=== PATIENT | female | born 1955 | race Caucasian/White ===

== ENCOUNTER → 2018-07-23 | Outpatient (CLI) | payer OTHER | LOC: RAD 09:21 | DX: Z12.31 Encounter for screening mammogram for malignant neoplasm of breast (principal) ==

== ENCOUNTER 2019-03-28 05:58 | Observation (INO) | payer OTHER ==
--- NOTE | 2019-03-21 09:30 | EKG ---
[address] [address] ELECTROCARDIOGRAM REPORT Name: AFIA SAXENA ANGELA Room #: PRE [facility]..#: [id number] ������������������ Admission: ������������������ Attend Phys: Pancho Carcamo MD Discharge: ������������������ Date of : 57 Report #: [id number] ����������������������������������������������������������������� [id number] THIS REPORT FOR: //name// [facility] Test Date: 2019-03-20 Test Time: 08:47:45 Pat Name: AFIA SAXENA Department: Room: Gender: F Stranner: DARIO MORRIS : 1955 Requested By: Pancho Carcamo Order Number: [id number] MD: Keanu Mae Measurements Intervals [place] Rate: 62 P: 65 CA: 166 QRS: 52 QRSD: 96 T: 39 QT: 394 QTc: 400 Interpretive Statements Sinus rhythm Normal tracing Compared to ECG 04/04/2002 22:57:25 No significant change was found Electronically Signed On 03-21-2019 9:30:51 CDT by Keanu Mae [email or web address] ��������������������������������������������� <ELECTRONICALLY SIGNED> ���������������������������������������� By: Keanu Mae MD, [facility] ��������������������������������������������� 03/21/19 0930 0847 6 Keanu Mae MD, FACC /EPI
[~2019-03-28] VITALS: Ht 160 cm; Wt 64.4 kg
[2019-03-28] VITALS (9 sets, daily range): BP systolic 113–143; BP diastolic 38–88
--- NOTE | ~2019-03-28 | O ---
[facility] [place] [address] OPERATIVE REPORT Name: AFIA SAXENA Room #: 150-3 [facility] M.R.#: [id number] Admission: 03/28/19 ������������������ Attend Phys: Pancho Carcamo MD Discharge: ������������������ Date of : 57 Report #: [id number] THIS REPORT FOR: //name// CC: Deny Carcamo DATE OF SERVICE: 03/28/2019 PREOPERATIVE DIAGNOSIS: Right knee medial compartment osteoarthritis. POSTOPERATIVE DIAGNOSIS: Right knee medial compartment osteoarthritis. PROCEDURE: Right medial compartment knee arthroplasty using Navio robotic assistance. SURGEON: Pancho Carcamo MD. AUTOMATIC MACHINE ATTENDANT: Romy Clifford PA-C. INDICATIONS FOR AUTOMATIC MACHINE ATTENDANT: Throughout the case, extensive retraction and manipulation of the knee was required. This was afforded to me by my title i instructional assistant. ANESTHESIA: LMA with an adductor canal block. IMPLANTS: Roblero and Nephew size 4 Journey medial compartment Oxinium femoral component, size 1 tibia and a size 10 polyethylene. TOURNIQUET TIME: 49 minutes. ESTIMATED BLOOD LOSS: 25 mL. COMPLICATIONS: None. SPECIMENS: None. CONDITION UPON LEAVING THE OPERATING ROOM: Stable. INDICATION FOR PROCEDURE: The patient is a 63-year-old female with right knee medial compartment osteoarthritis. She had failed conservative treatment for this and after discussion with her, she elected for right medial compartment knee arthroplasty. DESCRIPTION OF PROCEDURE: Risks, benefits, alternatives and complications were discussed in detail with the patient including but not limited to risk of anesthesia, risk of damage to nerves, arteries, blood vessels, risk for infection, bleeding, risk for continued knee pain, need for reoperation. [facility] [address] [place] [address] OPERATIVE REPORT Name: AFIA SAXENA Room #: 150-3 [facility]..#: [id number] Admission: 03/28/19 ������������������ Attend Phys: Pancho Carcamo MD Discharge: ������������������ Date of : 57 Report #: [id number] Informed consent was obtained from the patient. Right knee was appropriately marked in the preoperative holding area. Adductor canal block was placed by anesthesia. IV Ancef was given for preoperative antibiotics. She was brought to the operating room and placed in the supine position on the operating room table. LMA anesthesia was induced without complication. Tourniquet was placed on the right thigh. Right lower extremity was prepped and draped in normal sterile fashion. Timeout was performed properly identifying the patient and procedure as well as the instrumentation and implants. All in the operating room were in agreement. Right lower extremity was exsanguinated, tourniquet was inflated. Tourniquet time was 49 minutes. A standard approach to the medial knee was made with 10 blade through the skin. Dissection was taken down sharply to the fascia and deep flaps were developed medially and laterally. Fresh 10 blade was used to make a medial parapatellar arthrotomy and the knee was inspected. There was severe medial compartment osteoarthritis. Lateral compartment was well maintained. ACL was intact. 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 It was decided to proceed with unicompartmental knee arthroplasty. Reference pins were placed in the femur and the tibia. The knee was digitally mapped using the Navio robotic title i instructional assistant. Intraoperative plan was made and we sized the size 4 femur, a size 1 tibia with a size 8 spacer. After acceptance of the intraoperative plan, the femoral and tibial resection was made with a Navio bur. Tibia was sized, found to be a size 1. A size 1 tibial trial was placed, pinned and drilled. A size 4 femoral trial was placed. This was then trialed with a size 9 and then a size 10 polyethylene. The size 10 polyethylene had 1 mm laxity medially throughout range of motion both digitally as well as manually. Trial components removed. Bony ends were thoroughly irrigated with normal saline. A final size 1 tibia and size 4 Journey Oxinium medial femoral component were cemented in place using standard cementation techniques. While the cement cured, a periarticular injection consisting of morphine, ropivacaine, epinephrine and Toradol was placed around the knee joint capsule. After the cement cured, tourniquet was deflated. Hemostasis was obtained with Bovie cautery. A final size 10 polyethylene was placed. A gram of vancomycin was placed deep in the joint. Fascia was closed with 0 Vicryl, skin was closed with 2-0 Vicryl, 3-0 Monocryl. Dermabond and a OLGA dressing was applied. The patient tolerated this procedure well and went to recovery room under care of Anesthesia postoperatively. ��������������������������������������������� ���������������������������������������� By: ��������������������������������������������� 1401 1413 Pancho Carcamo MD /nt
[~2019-03-28 05:58] MED LIST: BIO-IDENTICAL HORMON SUBQ; EXCEDRIN CAPLE1 EACH PO; PROBIOTIC1 EAC1 PO; TUMS PO
--- NOTE | 2019-03-28 17:59 | NUR ---
PATIENT ARRIVED POST OP PARTIAL KNEE REPLACEMENT. ORRIENTED X4, SLEEPY/DROWSY, PAIN 3/10 DECLINED PAIN MEDS AT TIME OF ARRIVAL. LEVON HOSE AND SCD'S AND ICE INPLACE. NEUROCHECK IN PLACE. UP WITH WTE BEARING TOLERATED WITH GAIT BELT AND WALKER TO COMMODE. FALL PREACAUTIONS IN PLACE. TREATED NAUSEA WITH MEDICATIONS. CALL LIGHT IN REACH. BEDSIDE.
[2019-03-29 05:39] LABS: HEMOGLOBIN 11.5 gm/dL (12.0-15.0); MCH 30.3 pg (26.0-34.0); MCHC 32.8 g/dL (28.0-37.0); MCV 92.5 fL (80.0-100.0); RBC 3.78 mil/uL (4.20-5.00); RDW 13.5 % (10.5-14.5); WBC 13.7 thou/uL (4.0-11.0)
[2019-03-29 05:48] VITALS: BP 117/46
--- NOTE | 2019-03-29 07:36 | NUR ---
A/O, calm and pleasant; patient walked in the hallway with a walker, slow but steady; vomitted during the walking, refuse medication for vomitting, claiming that she felt better after the vomitting; bed rest. antibiotics given.
[2019-03-29 07:39] VITALS: BP 110/65
[2019-03-29 09:58] VITALS: BP 110/65
--- NOTE | 2019-03-29 12:05 | NUR ---
PT ADMITTED RELATED TO RIGHT KNEE UNICOMPARTMENTAL REPLACEMENT. CM MET WITH PT AT BEDSIDE THIS DAY. PT IS A&O X4. CM ROLE INTRODCUED. PT INDICATED SHE LIVES IN A HOUSE WITH HER SPOUSE WITH 2 STEPS TO ENTER AND NO STEPS INSIDE. 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 PT INDICATED SHE HAS A FWW FOR USE UPON DC. PT INDICATED SHE IS ESTABLISHED WITH OP PT AT [facility] IN [place]. PT PLANS TO DC HOME THIS DAY. NO OTHER CM INTERVENTION INDICATED. CASE CLOSED.
--- NOTE | 2019-03-29 15:36 | NUR ---
Received awake on bed. Due medications given as prescribed- able to swallow meds w/o difficulty. A+Ox4. On room air. S/P R knee replacement, OLGA dressing intact, C/D/I. On weight bearing as tolerated- Pt seen by PT today. Tolerated breakfast and lunch today- no episode of nausea, vomiting and abdominal pain. With IVF at R AC at 100cc/hr, infusing well. Pt seen by Romy Clifford, D/C orders put in. Discharge instructions, follow up schedule given to pt, No CM needs. Able to ambulate in the hallway with walker with PT today- tolerated well. IVF discontinued. Complained of pain, due medications given as prescribed. Ice packs applied at R knee. Able to use toilet, passed urine. Pt fetched by her , transported via wheelchair with volunteer transport. [place] formed signed, personal belongings taken with patient.
== END 2019-03-29 14:21 | disposition home or self-care (01) ==
LOC: OR 05:58 → TBA 05:58 → OR 06:03 → EDSTATUS 11:45 → PRE 11:45 → OR 11:50 → 4W 14:57 → OR 14:58 → ENTRNSPT 03-29 14:10 → EDTRNSPTSTS 03-29 14:15 → 4W 03-29 14:21
PROVIDERS: ADMIT Orthopaedic Surgery
DX: M17.11 Unilateral primary osteoarthritis, right knee (principal)
CPT/HCPCS: 10047; 50010; 50101; 50415; 50954; 51130; 51225; 51771; 53078; 53370; 54118; 56527; 56528; 57095; 57103; 57110; 57127; 57180; 62110; 62900; 70005

== ENCOUNTER → 2019-08-22 | Outpatient (CLI) | payer OTHER | LOC: RAD 08:49 | DX: Z12.31 Encounter for screening mammogram for malignant neoplasm of breast (principal) ==

== ENCOUNTER → 2021-07-26 | Outpatient (CLI) | payer BC, OTHER | LOC: RAD 15:05 | PROVIDERS: ATTEND Obstetrics & Gynecology | DX: Z12.31 Encounter for screening mammogram for malignant neoplasm of breast (principal); N64.89 Other specified disorders of breast ==